=== PATIENT | male | born 1990 | race Caucasian/White ===

== ENCOUNTER 2018-09-25 20:50 | Emergency (ER) | payer OTHER ==
[~2018-09-25] VITALS: Ht 175.3 cm; Wt 65.8 kg
[2018-09-25] MEDS ORDERED: LEXAPRO20 MG PO (21:26)
[2018-09-25] MEDS ORDERED: VENTOLIN HFA18 GM INH (21:27)
[2018-09-25] MEDS ORDERED: LANTUS SOL100 UNIT/1 SUB-Q (21:27)
[2018-09-25] MEDS ORDERED: HUMALOG100 UNITS/ IV (21:29)
== END 2018-09-25 23:26 | disposition home or self-care (01) ==
LOC: ED 20:50
DX: R11.10 Vomiting, unspecified (principal); E10.9 Type 1 diabetes mellitus without complications
CPT/HCPCS: 80053; 81001; 82010; 82800; 85025; 96361; 96374; 96375; 99284-25; J1200; J2270; J2765; J7030

== ENCOUNTER 2022-03-03 20:08 | Emergency (ER) | payer OTHER ==
[~2022-03-03] VITALS: Ht 175.3 cm; Wt 65.8 kg
[~2022-03-03 20:08] MED LIST: HUMALOG100 UNITS/ IV; LANTUS SOL100 UNIT/1 SUB-Q; LEXAPRO20 MG PO; PROMETHAZINE HC25 M1 PO; VENTOLIN HFA18 GM INH
[2022-03-03] MEDS ORDERED: ATROVENT HFA12.9 GM INH (22:45)
[2022-03-03] MEDS ORDERED: VENTOLIN HFA18 GM INH (22:45)
== END 2022-03-04 00:10 | disposition home or self-care (01) ==
LOC: ED 20:08
DX: J45.901 Unspecified asthma with (acute) exacerbation (principal); E10.9 Type 1 diabetes mellitus without complications; Z87.891 Personal history of nicotine dependence; Z20.822 Contact with and (suspected) exposure to COVID-19
CPT/HCPCS: 36415; 71045; 85025; 87502; 94640; 96374; 96375; 96376; 99285-25; C9803; J2930; J3475; U0003

== ENCOUNTER 2022-04-13 14:26 | Emergency (ER) | payer OTHER ==
[~2022-04-13] VITALS: Ht 175.3 cm; Wt 70.3 kg
[~2022-04-13 14:26] MED LIST changes: +ATROVENT HFA12.9 GM INH
[2022-04-13] MEDS ORDERED: PREDNISONE20 MG PO (16:38)
[2022-04-13] MEDS ORDERED: PROAIR HFA8.5 GM INH (16:38)
[2022-04-13] MEDS ORDERED: FLOVENT HFA12 G1 INH (16:38)
--- NOTE | 2022-04-13 20:51 | EKG ---
[facility] [address] [facility] [place] [address] Signed Normal sinus rhythm Normal ECG No previous ECGs available Confirmed by ABDELRAHMAN HENRIQUEZ MD ([id number] on 04/13/2022 8:51:36 PM Electronically Signed By: ABDELRAHMAN HENRIQUEZ MD 04/13/222050 PATIENT NAME: FRANCISCO J LEWIS Electrocardiogram DATE OF : 88 PHYSICIAN: ABDELRAHMAN HENRIQUEZ MD REPORT #: [id number] REPORT IS CONFIDENTIAL AND NOT TO BE RELEASED WITHOUT AUTHORIZATION
== END 2022-04-13 16:47 | disposition home or self-care (01) ==
LOC: ED 14:26
DX: J45.901 Unspecified asthma with (acute) exacerbation (principal); Z20.822 Contact with and (suspected) exposure to COVID-19; E10.9 Type 1 diabetes mellitus without complications; Z87.891 Personal history of nicotine dependence; Z79.899 Other long term (current) drug therapy
CPT/HCPCS: 36415; 71045; 80053; 83735; 84484; 85025; 87502; 93005; 93010; 94640; 94644; 96374; 99285-25; C9803; J2930; U0003